=== PATIENT | female | born 1995 | race Caucasian/White ===

== ENCOUNTER 2018-10-26 20:26 | Emergency (ER) | payer OTHER ==
[2018-10-26 20:53] VITALS: BP 127/63; PULSE 90; TEMP 98.4; BMI 31.1
--- NOTE | 2018-10-26 21:38 | PDOC ---
History of Present Illness - History of Present Illness Initial Comments: 10/26/18 21:38 23 yo F with no significant pmh who p/w RLQ abdominal/pelivc pain. Patient reports spasmodic, RLQ crampy abdominal pain beginning at 400PM today, lasting for minutes and resolving spontaneously, with no identifiable triggers or alleviators. H/o similar pain years ago. Nml bowel habits and PO intake. Patient denies PARTIDA, vision change, palpitations, cough, wheezing, orthopena, PND , leg swelling/pain, N/V, F,C, CP, SOB, urinary complaints, hematuria, vaginal bleeding/itching/irritation/discharge, BPR, diarrhea, constipation, lightheadedness, weakness, sensory changes. PMHx: as noted above Surgical: H/o hernia repair in infancy ROS: as noted SHx: Denies IVDA, tobacco use. Denies h/o STIs. Last sexually active x 1 month ago, with one male partner. Last menstruation 10/19. Allergies: PCN-Hives <Bijan Abreu - Last Filed: 10/27/18 01:22> <Sirisha Rodriguez - Last Filed: 10/28/18 12:58> - General Chief Complaint: Pain Stated Complaint: PELVIC PAIN Time Seen by Provider: 10/26/18 21:16 Past History - Past Medical History COPD: No - Suicide/Smoking/Psychosocial Hx Smoking Status: No Smoking History: Never smoked Have you smoked in the past 12 months: No Number of Cigarettes Smoked Daily: 0 Information on smoking cessation initiated: No Hx Alcohol Use: No Drug/Substance Use Hx: No <Bijan Abreu - Last Filed: 10/27/18 01:22> <Sirisha Rodriguez - Last Filed: 10/28/18 12:58> - Past Medical History Allergies/Adverse Reactions: Allergies Allergy/AdvReac Type Severity Reaction Status Date / Time Penicillins Allergy Verified 10/26/18 20:53 Home Medications: Ambulatory Orders Ibuprofen [Motrin -] 600 mg PO QID PRN #20 tablet 01/01/13 No Home Medications 0 dose .ROUTE UTDICT 01/01/13 Ketorolac Tromethamine [Toradol] 10 mg PO TID PRN #14 tablet MDD 3 tab 10/27/18 Review of Systems - Review of Systems Comments:: 10/26/18 21:38 GENERAL/CONSTITUTIONAL: No fever or chills. No weakness. HEAD, EYES, EARS, NOSE AND THROAT: No change in vision. No ear pain or discharge. No sore throat. CARDIOVASCULAR: No chest pain or shortness of breath RESPIRATORY: No cough, wheezing, or hemoptysis. GASTROINTESTINAL: No nausea, vomiting, diarrhea or constipation. GENITOURINARY: No dysuria, frequency, or change in urination. MUSCULOSKELETAL: + RLQ abdominal pain. No joint or muscle swelling or pain. No neck or back pain. SKIN: No rash NEUROLOGIC: No headache, vertigo, loss of consciousness, or change in strength/ sensation. ENDOCRINE: No increased thirst. No abnormal weight change HEMATOLOGIC/LYMPHATIC: No anemia, easy bleeding, or history of blood clots. ALLERGIC/IMMUNOLOGIC: No hives or skin allergy. <Bijan Abreu - Last Filed: 10/27/18 01:22> *Physical Exam - Vital Signs Last Vital Signs Temp Pulse Resp BP Pulse Ox 98.4 F 90 18 127/63 100 10/26/18 20:50 10/26/18 20:50 10/26/18 20:50 10/26/18 20:50 10/26/18 20:50 - Physical Exam Comments: 10/26/18 21:38 GENERAL: Awake, alert, and fully oriented, in no acute distress HEAD: No signs of trauma, normocephalic, atraumatic EYES: PERRLA, EOMI, sclera anicteric, conjunctiva clear ENT: Hearing grossly normal, nares patent, oropharynx clear without exudates. Moist mucosa NECK: Normal ROM, supple, no lymphadenopathy, JVD, or masses LUNGS: No distress, speaks full sentences, clear to auscultation bilaterally HEART: Regular rate and rhythm, normal S1 and S2, no murmurs, rubs or gallops, peripheral pulses normal and equal bilaterally. ABDOMEN: + RLQ ttp. Soft, NDS, normoactive bowel sounds. No guarding, no rebound. No masses GENITOURINARY: Nml appearing external genitalia, with absent lesions. Vaginal vault without blood, or discharge. Cervical os closed. Neg CMT on BM. Neg adenexal ttp, or mass palpated. Chaperoned by Dr. Rodriguez EXTREMITIES : Normal inspection, Normal range of motion, no edema. No clubbing or cyanosis. NEUROLOGICAL: Cranial nerves II through XII grossly intact. Normal speech, normal gait, no focal sensorimotor deficits SKIN: Warm, Dry, normal turgor, no rashes or lesions noted <Bijan Abreu - Last Filed: 10/27/18 01:22> - Vital Signs Last Vital Signs Temp Pulse Resp BP Pulse Ox 98.4 F 90 18 127/63 100 10/26/18 20:50 10/26/18 20:50 10/26/18 20:50 10/26/18 20:50 10/26/18 20:50 <Sirisha Rodriguez - Last Filed: 10/28/18 12:58> ED Treatment Course - LABORATORY CBC & Chemistry Diagram: 10/26/18 22:12 10/26/18 22:12 - ADDITIONAL ORDERS Additional order review: 10/27/18 01:13 Phone: [phone] Fax: Email: [email or web address]: [email or web address] Patient Information: : 1995 Order Type: Preliminary Name: LOAN RAY Sex: F Study Description: US PELVIC LIMITED Modality: US Location: [facility] Referring Physician: ERLINDA GARCIA Comments: Angel Luis Rm MD wrote on Oct 27, 2018 at 01:01 AM: Referring Physician: ERLINDA GARCIA Patient Name: FLOR CATES THIS IS A PRELIMINARY REPORT FROM [facility] [facility] DATE OF SERVICE: 2018-10-26 23:54:24 IMAGES: 11 EXAM: PELVIS(OTHER) US HISTORY: Right lower quadrant pain COMPARISON: None. FINDINGS: Appendix not identified. No free fluid. IMPRESSION: Nonvisualization of the appendix and therefore appendicitis cannot be excluded. THIS DOCUMENT HAS BEEN ELECTRONICALLY SIGNED CONFIDENTIALITY NOTICE: This information is intended only for the use of the recipient(s) named above. If you are not the intended recipient, or a person responsible for delivering it to the intended recipient, you are hereby notified that any disclosure, copying, distribution or use of any of the information contained in or attached to this transmission is STRICTLY PROHIBITED. If you have received this transmission in error, please immediately notify Imaging Mixer Lever Operator and destroy the original transmission and its attachments without saving them in any manner [address] [place] [address] Phone: [phone] Fax: Email: [email or web address]: [email or web address] Patient Information: : 1995 Order Type: Preliminary Name: LOAN RAY Sex: F Study Description: US PELVIC LIMITED Modality: US Location: [facility] Referring Physician: ERLINDA Rm MD 10/27/2018 01:00 ANA MARIA Martínez Please call Imaging Mix[facility] Lever Operator [phone]) with questions. Angel Luis Rm MD : 1995 Order Type: Preliminary Name: LOAN RAY Sex: F Study Description: US PELVIC Modality: US Location: [facility] Referring Physician: ERLINDA GARCIA Comments: Angel Luis Rm MD wrote on Oct 27, 2018 at 01:08 AM: Referring Physician: ERILNDA GARCIA Patient Name: FLOR CATES THIS IS A PRELIMINARY REPORT FROM [facility] DATE OF SERVICE: 2018-10-27 00:02:51 IMAGES: 66 EXAM: Transabdominal pelvic ultrasound, endovaginal pelvic ultrasound and pelvic duplex HISTORY: Rule out ovarian torsion COMPARISON: None. FINDINGS: Transabdominal pelvic ultrasound: No mass is identified. Endovaginal pelvic ultrasound:Uterus is anteverted and measures 7.0centimeters in length. The endometrium is 2millimeters in thickness which is normal. There is a 10 mm left posterior uterine intramural fibroid. The right ovary measures 3.5centimeters in length, contains a 1.1 cm cyst and demonstrates normal flow. Left ovary measures 3.3centimeters in length appears normal demonstrates normal flow. There is no significant free fluid. CONFIDENTIALITY NOTICE: This information is intended only for the use of the recipient(s) named above. If you are not the intended recipient, or a person responsible for delivering it to the intended recipient, you are hereby notified that any disclosure, copying, distribution or use of any of the information contained in or attached to this transmission is STRICTLY PROHIBITED. If you have received this transmission in error, please immediately notify Imaging Mixer Lever Operator and destroy the original transmission and its attachments without saving them in any manner [address] [facility] [address] [place] [address] Phone: [phone] Fax: Email: [email or web address]: [email or web address] Patient Information: : 1995 Order Type: Preliminary Name: LOAN RAY Sex: F Study Description: US PELVIC Modality: US Location: [facility] Referring Physician: ERLINDA GARCIA Pelvic duplex: There is normal arterial and venous flow in both ovaries. IMPRESSION: Small fibroid. No acute pathology. 10/27/18 01:14 <Bijan Abreu - Last Filed: 10/27/18 01:22> - LABORATORY CBC & Chemistry Diagram: 10/26/18 22:12 10/26/18 22:12 - ADDITIONAL ORDERS Additional order review: 10/26/18 22:16 Urine Culture - Final Urine - Urine Clean Catch 10/26/18 22:12 RBC 4.40 MCV 88.7 MCHC 34.1 RDW 13.8 MPV 7.9 Neutrophils % 53.0 Lymphocytes % 34.8 Monocytes % 8.1 Eosinophils % 3.4 Basophils % 0.7 - Medications Given in the ED: ED Medications Discontinued Medications Generic Name Dose Route Start Last Admin Trade Name Freq PRN Reason Stop Dose Admin Acetaminophen 650 mg 10/26/18 21:52 10/26/18 23:56 Tylenol - PO 10/26/18 21:53 650 mg ONCE ONE Administration <Sirisha Rodriguez - Last Filed: 10/28/18 12:58> Medical Decision Making - Medical Decision Making 10/26/18 21:47 23 yo F with no significant pmh who p/w spasmodic, RLQ crampy abdominal pain beginning at 400PM today. Vitals wnl, AF, A&Ox3. + RLQ ttp. R/o ovarian torsion. Will consider /ectopic, ovarian cyst rupture, PID, cystitis, nephrolithiasis, appendicitis, colitis, constipation. 10/26/18 23:05 ED Course: PELVIC US/TVUS Tylenol 650 mg 10/26/18 23:33 CBC,CMP: Unremarkable CBC, CMP: Unremarkable UA: Neg 10/27/18 01:14 Transabdominal pelvic ultrasound: No mass is identified. Endovaginal pelvic ultrasound:Uterus is anteverted and measures 7.0centimeters in length. The endometrium is 2millimeters in thickness which is normal. There is a 10 mm left posterior uterine intramural fibroid. The right ovary measures 3.5centimeters in length, contains a 1.1 cm cyst and demonstrates normal flow. Left ovary measures 3.3centimeters in length appears normal demonstrates normal flow. There is no significant free fluid. IMPRESSION: Smal fibroid, no acute pathology 10/27/18 01:15 FINDINGS: Appendix not identified. No free fluid. IMPRESSION: Nonvisualization of the appendix and therefore appendicitis cannot be excluded Pt. stable for d/c with return precautions. Pain improved. Patient advised to f/u with [facility]. <Bijan Abreu - Last Filed: 10/27/18 01:22> *DC/Admit/Observation/Transfer <Bijan Abreu - Last Filed: 10/27/18 01:22> <Sirisha Rodriguez - Last Filed: 10/28/18 12:58> Diagnosis at time of Disposition: RLQ abdominal pain, Ovarian cyst - Discharge Dispostion Disposition: HOME Condition at time of disposition: Stable - Prescriptions Prescriptions: Ketorolac Tromethamine [Toradol] 10 mg PO TID PRN #14 tablet MDD 3 tab PRN Reason: Pain - Referrals Referrals: Gloria Chow MD [Staff Physician] - - Patient Instructions Printed Discharge Instructions: DI for Abdominal Pain-Adult, DI for Ovarian Cyst Additional Instructions: Please return to the emergency department with any new or worsening symptoms or concerns. Please follow up with your [facility]ist or primary care physician within 72 hours. - Post Discharge Activity Forms/Work/School Notes: Back to Work
[2018-10-26] MEDS ORDERED: ACETAMINOPHEN 325 MG TABLET (FP) PO ONE (21:52)
[2018-10-26 22:22] LABS: BASO % 0.7 % (0-2.0); EOS % 3.4 % (0-4.5); HEMOGLOBIN 13.3 GM/dL (10.7-15.3); LYMPH % 34.8 % (8-40); MCH 30.2 pg (25.7-33.7); MCHC 34.1 g/dl (32.0-36.0); MEAN CELL VOLUME 88.7 fl (80-96); MEAN PLT VOLUME 7.9 fl (7.5-11.1); MONO % 8.1 % (3.8-10.2); PLATELET COUNT 300 K/MM3 (134-434); RDW 13.8 % (11.6-15.6); WHITE BLOOD COUNT 9.1 K/mm3 (4.0-10.0)
[2018-10-26] MEDS ORDERED: SODIUM CHLORIDE 500 ML IV STA (22:47)
[2018-10-26 22:49] LABS: URINE APPEARANCE CLOUDY; URINE BILIRUBIN NEGATIVE (NEGATIVE); URINE COLOR YELLOW; URINE GLUCOSE (UA) NEGATIVE (NEGATIVE); URINE KETONE NEGATIVE (NEGATIVE); URINE LEUK ESTERASE NEGATIVE (NEGATIVE); URINE NITRITE NEGATIVE (NEGATIVE); URINE PROTEIN NEGATIVE (NEGATIVE)
[2018-10-26 22:50] LABS: HCG,QUALITATIVE URINE Negative
[2018-10-26 23:07] LABS: ALBUMIN 3.8 g/dl (3.4-5.0); ALK PHOS 87 U/L (45-117); ANION GAP 6 MMOL/L (8-16); BILIRUBIN,TOTAL 0.3 mg/dL (0.2-1); BLOOD UREA NITROGEN 15 mg/dL (7-18); CALCIUM 9.3 mg/dL (8.5-10.1); CHLORIDE 107 mmol/L (98-107); CO2 25 mmol/L (21-32); CREATININE 0.5 mg/dL (0.55-1.3); GLUCOSE,RANDOM 108 mg/dL (74-106); POTASSIUM 3.5 mmol/L (3.5-5.1); SGOT/AST 14 U/L (15-37); SGPT/ALT 21 U/L (13-61); SODIUM 138 mmol/L (136-145); TOT PROT 7.4 g/dl (6.4-8.2)
--- NOTE | 2018-10-27 00:22 | PDOC ---
Documentation entered by Nathalie Hinton SCRIBE, acting as scribe for Sirisha Rodriguez MD. Sirisha Rodriguez MD: This documentation has been prepared by the scribe, Nathalie Hinton SCRIBE, under my direction and personally reviewed by me in its entirety. I confirm that the documentation accurately reflects all work, treatment, procedures, and medical decision making performed by me. Attending Attestation - Resident Resident Name: Bijan Abreu - ED Attending Attestation I have performed the following: I have examined & evaluated the patient, The case was reviewed & discussed with the resident, I agree w/resident's findings & plan - HPI HPI: 10/26/18 23:23 Ms. Carlos is a 23 year old female with no significant past medical history presents to the emergency department with abdominal pain. The patient reports shes been having intermittent RLQ/pelvic pain, thats crampy and spamatic in quality since 4:00 pm today. The patient reports the pain is present at rest, intermittent and worsened with ambulation. The patient denies any known factor that aggravates or alleviates the pain. Denies nausea, vomiting, diarrhea, dysuria, hematuria, vaginal bleeding/discharge or irritation. The patient reports she is able to intake PO normally, and has regular BMs. Denies any recent abdominal surgery, injury or trauma. The patient reports she had a hx of hernia repair when she was an . The patient reports she is sexually active with a single partner. No STD history. LMP: October 19, 2018, regular. Allergies: PCN. - Physicial Exam PE: 10/26/18 23:17 Agree with the resident's HPI and PE as documented in the electronic medical record. NAD, well appearing, PERRL, EOMI, MMM, nl conjunctiva, anicteric; neck supple. lungs clear, RRR, abdomen soft nontender, mild RLQ/pelvic TTP, no rebound or guarding. no CVAT. DUNCAN x4, No peripheral edema. normal color for ethnicity, WWP. 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 no lesions or bleeding, unremarkable pelvic exam. - Medical Decision Making 10/26/18 23:18 See HPI for details Vital signs reviewed, wnl. Prior notes reviewed, including admissions, discharges and consultations. laboratory results and imaging reviewed, basic labs and lytes wnl, UA_wnl, no s/s infection. neg preg test. ED course - analgesia, reassess - well appearing, nontoxic, comfortable in bed, texting. very minimal abdominal pain - pelvic sono, eval for appy vs pelvic cyst/ovarian cyst/torsion. unremarkable for appy, unable to be visualized, no FF, pelvic sono with small rt 1.1 cm ovarian cyst, normal flow bilaterally pt clinically does not appear to have torsion or appy, low suspicion with neg workup. return precautions, monitor 8-12 hours for RLQ pain, return precautions for appy. 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 Dispo: Pt informed of my clinical impression, treatment recommendations and disposition plan. All questions answered to patient's satisfaction and expressed understanding and comfort with this. Reasons for returning to the ED sooner discussed including new or persistent/worsening symptoms with the patient otherwise, follow up with primary care physician. At the time of discharge, the patient is alert, clinically improved, tolerating po and verbalizes understanding of instructions, satisfied with the care received and felt comfortable with the plan. Patient does not suffer from an acute life- threatening medical condition at this time she is safe for outpatient follow- up. 10/27/18 02:28
== END 2018-10-27 01:40 | disposition home or self-care (01) ==
LOC: JER 20:26
DX: D25.9 Leiomyoma of uterus, unspecified (principal); N83.201 Unspecified ovarian cyst, right side
CPT/HCPCS: 36415; 76830-TC; 76856-TC; 80053; 81003; 84703; 85025; 87086; 99281-25